=== PATIENT | female | born 1950 | race Caucasian/White ===

== ENCOUNTER 2019-09-12 23:03 | Emergency (ER) | payer SELFPAY ==
[~2019-09-12] VITALS: Ht 160 cm; Wt 70.4 kg
[2019-09-12 23:09] VITALS: Ht 160 cm; Wt 70.4 kg
[2019-09-13 03:57] VITALS: BP 143/89
== END 2019-09-13 03:57 | disposition home or self-care (01) ==
LOC: ED 23:03
DX: S62.635B Displaced fracture of distal phalanx of left ring finger, initial encounter for open fracture (principal); I10 Essential (primary) hypertension; W18.39XA Other fall on same level, initial encounter; Y93.89 Activity, other specified; Y92.89 Other specified places as the place of occurrence of the external cause; Y99.8 Other external cause status
CPT/HCPCS: 90715; J0696; J2001; Q0092